=== PATIENT | female | born 1970 | race Caucasian/White ===

== ENCOUNTER 2020-03-11 05:42 | Day surgery (SDC) | payer OTHER ==
[~2020-03-11] VITALS: Ht 170.2 cm; Wt 86.2 kg
[2020-03-11 06:18] LABS: HEMATOCRIT 40.7 % (36.0-48.0); HEMOGLOBIN 13.5 g/dL (12-16); MCH 29.3 pg (26.0-34.0); MCHC 33.2 g/dL (31.0-37.0); MCV 88.3 fL (80.0-100.0); MEAN PLATELET VOLUME 11.7 fL (7.4-10.4); RBC 4.61 10x6/uL (4.00-5.40); RDW 13.6 % (11.5-14.5); WBC 6.2 10x3/uL (4.8-10.8)
[2020-03-11 07:33] VITALS: BP 118/69; Ht 170.2 cm; Wt 86.2 kg
--- NOTE | 2020-03-11 10:58 | NUR ---
1030 IV D/C'D WITH CANNULA INTACT, PRESSURE HELD AND DRESSING PLACED. DISCHARGE INSTRUCTION GIVEN AND SHE VERBALIZED AN UNDERSTANDING. REPORTS PAIN TO 09/28. DISCHARGED WITH A MODIFIED LEROY SCORE OF 16 AND W/O C/O.
--- NOTE | 2020-03-11 11:20 | NUR ---
IV D/C'D WITH CANNULA INTACT, PRESSURE HELD, AND DRSG PLACED. DISCHARGE INSTRUCTIONS GIVEN AND PT VERBALIZED AN UNDERSTANDING. REPORTS PAIN DECREADED TO 3/10. DISCHARGED WITH ALL CRITERIA MET AND A RETURN TO BASELINE AND W/O C/O
--- NOTE | 2020-03-15 07:03 | OP ---
PATIENT NAME: KB GALLO MEDICAL RECORD: [id number] :70 LOCATION:[facility] ADMISSION DATE: SURGEON: HOSEA RUIZ DO DATE OF OPERATION: 03/11/2020 PROCEDURE PERFORMED: Right knee arthroscopy with partial medial and partial lateral meniscectomy. PREOPERATIVE DIAGNOSIS: Right knee lateral meniscal tear. POSTOPERATIVE DIAGNOSIS: Right knee lateral meniscal tear with medial meniscal tear. INDICATIONS: Ms. Gallo is a 49-year-old female who has had right knee pain for quite some time, was popping, catching, and locking. She had an MRI, which showed a lateral meniscal tear. She had a previous partial meniscectomy years ago. She says she had similar symptoms. I told her we could go and trim it out or repair it if repairable. She is okay with that and is aware of the risks including infection, bleeding, retear of the meniscus, continued pain, popping, catching, locking, need for further surgery, blood clots, and even and she signed a consent. SURGEON: Hosea Ruiz DO DESCRIPTION OF PROCEDURE: The patient was taken to operative suite and laid in supine position, given general anesthetic, 2 grams Ancef to the right. After sedating, LMA was placed. The right lower extremity was then prepped and draped in sterile fashion. Time out was performed. Everyone was in agreement with the correct side, site, patient, and procedure. I then began by making a lateral portal on the anterior aspect of the knee, anterolateral. The trocar was then entered into the joint. After the trocar was entered in the joint, I inspected the suprapatellar pouch, it was quite inflamed, but the cartilage itself was in good repair. The medial and lateral gutters were also free of debris. The knee was then flexed and then a medial portal was established with an 18-gauge spinal and an 11-blade scalpel and then brought in a trocar and a probe. I valgus stress the knee and got into the posterior horn of the medial meniscus with a probe and saw there was a small tear just on the very inside of it. I then brought in a bitter and trimmed it out and used the shaver to trim it back to a stable point. I then brought the probe back in and checked the ACL. ACL was intact, although somewhat loose. Then, figured-four the leg and saw really anterior half of the meniscus. The lateral meniscus was torn. I brought in a shaver and biter, side biter even and cleaned that up and back to a stable point, and once this was at stable point, I inspected the patellofemoral joint and there was no chondromalacia seen there and there was none in the lateral or medial compartments either. I then turned off the water and turned on suction and removed the excess fluid. Santos Shah, certified medication aide closed each of the portal sites with 4-0 Monocryl in a vertical fashion, dressed with a Steri-Strip, Adaptic, 4 x 4s, ABD, Webril, Remington wrap, and GELA stocking placed. She was then awakened and taken to recovery in stable condition. BLOOD LOSS: Minimal. COMPLICATIONS: None. TRANSINT:[id number] Voice Confirmation ID: [id number] DOCUMENT ID: [id number] OPERATIVE REPORT [id number] GALLO,HOSEA REIS DO at 0703 CC: [id number] DICTATION DATE: 03/11/20 1333 [facility] WINDER: 03/11/202013 [facility] 03/11/20 [facility] [address] [place] [address]
== END 2020-03-11 10:40 | disposition home or self-care (01) ==
LOC: D.OPS 05:42 → D.PAN 08:25 → D.OPS 10:40 → D.PAN 11:15 → D.OPS 11:15
PROVIDERS: Anesthesiology; ATTEND Orthopaedic Surgery
DX: S83.281A Other tear of lateral meniscus, current injury, right knee, initial encounter (principal); X58.XXXA Exposure to other specified factors, initial encounter; M25.561 Pain in right knee